=== PATIENT | male | born 1990 | race Two or more races ===

== ENCOUNTER → 2021-08-03 | Outpatient (CLI) | payer BC ==
[2021-08-03 15:56] VITALS: BP 142/89; PULSE 84; TEMP 98.3; BMI 51.5
--- NOTE | 2021-08-03 16:40 | P.HPBAR ---
Bariatric H&P - History & Physicial H&P Date: 08/03/21 History & Physicial: Visit/CC: initial clinic visit Patient initial contact: Initial weight: Initial weight in pounds: Height: 6 ft 1 in Initial BMI: Last weight: Current weight: 177.355 kg Current weight in pounds: 391.00 Current BMI: 51.5 [place] body weight (based on NIH guidelines): 83.461 kg Excess body weight loss: The patient is a 31 year-old M who presents for Bariatric Assessment. Patient presents to the bariatric clinic today to discuss sleeve gastrectomy. Patient has investigated both sleeve gastrectomy and gastric bypass and feels the sleeve as a better fit for him. 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 Patient suffers from asthma chronic back pain and left foot pain. Patient currently uses chewing tobacco but is a nonsmoker. Patient's current weight 390. Says he finished high school at 330. Patient takes levothyroxine and albuterol. He has not discussed this surgery with his primary care physician yet. No history of DVT or dysphagia. Review of Systems The patient denies any acute changes in vision or hearing, no dysphagia or odynophagia, no chest pain or shortness of breath, no dysuria or hematuria, no headache, no runny nose, no rectal bleeding or melena, no unexplained weight loss Past Medical History Past Medical History: Asthma, Osteoarthritis (OA) Additional Past Medical History / Comment(s): bilateral heel spurs History of Any Multi-Drug Resistant Organisms: None Reported Past Surgical History: No Surgical Hx Reported Past Anesthesia/Blood Transfusion Reactions: No Reported Reaction Past Psychological History: No Psychological Hx Reported Smoking Status: Current every day smoker Past Alcohol Use History: Occasional Additional Past Alcohol Use History / Comment(s): chews tobacco daily Surgical - Exam Vital Signs Temp Pulse BP 98.3 F 84 142/89 08/03/21 15:33 08/03/21 15:33 08/03/21 15:33 Physical exam: General: Well-developed, well-nourished HEENT: Normocephalic, sclerae nonicteric Abdomen: Nontender, nondistended Extremities: No edema Neuro: Alert and oriented Bariatric Assessment & Plan (1) Morbid obesity with BMI of 50.0-59.9, adult Narrative/Plan: 31-year-old male with morbid obesity and associated comorbidities. We discussed at length surgical and nonsurgical options for weight loss. We discussed the risks and benefits of sleeve gastrectomy and gastric bypass. Patient remains interested in sleeve gastrectomy at this time. He will discuss this further with his primary care physician. We'll plan preoperative EGD. We'll obtain records from his psychiatrist's and his medical physician. Patient understands that nicotine cessation is required preoperatively and he will work on that. All questions answered. Status: Acute Bariatric Checklist Checklist: Plan: Checklist: EGD: 1. Hiatal hernia: 2. H. Pylori: HgbA1c: Vitamin D: Smoking: Primary care physician referral: dr frost Psychiatry clearance: Cardiology clearance: Sleep study: Diet journal: VTE risk score: VTE risk level: Rehab needs at discharge:
[2021-08-03 22:34] LABS: HCT 46.5 % (39.6-50.0); HGB 15.2 g/dL (13.0-17.0); MCH 29.9 pg (27.0-32.0); MCHC 32.7 g/dL (32.0-37.0); MCV 91.4 fL (80.0-97.0); Mean Platelet Volume 9.8 fL (9.5-12.2); NRBC Per 100 WBC 0 /100 WBCS (0.0-0.0); Platelet Count 312 X 10*3/uL (140-440); RBC 5.09 X 10*6/uL (4.40-5.60); RDW 12.7 % (11.5-14.5); WBC 8.63 X 10*3/uL (4.50-10.00)
[2021-08-03 23:35] LABS: African American GFR (CKD) 134.9 (60.0-200.0); Albumin 4.2 g/dL (3.8-4.9); Albumin/Globulin Ratio 1.8 (1.60-3.17); Anion Gap 10.6 mmol/L (10.00-18.00); BUN/Creat Ratio 18.93 Ratio (12.00-20.00); Calcium 9.5 mg/dL (8.7-10.3); Carbon Dioxide 24.1 mmol/L (20.0-27.5); Globulin 2.4 g/dL (1.6-3.3); Non-African American GFR(CKD) 116.4 (60.0-200.0); Potassium 4.2 mmol/L (3.5-5.5); Total Bilirubin 0.2 mg/dL (0.30-1.20); Total Protein 6.6 g/dL (6.2-8.2)
== END ==
LOC: BARWHC3 15:17
PROVIDERS: ATTEND Surgery
DX: E66.01 Morbid (severe) obesity due to excess calories (principal); K90.89 Other intestinal malabsorption; E55.9 Vitamin D deficiency, unspecified; Z68.43 Body mass index [BMI] 50.0-59.9, adult; J45.909 Unspecified asthma, uncomplicated; M19.90 Unspecified osteoarthritis, unspecified site; F17.200 Nicotine dependence, unspecified, uncomplicated; Z91.09 Other allergy status, other than to drugs and biological substances
CPT/HCPCS: 80053; 82306; 82607; 82746; 83036; 83540; 84425; 85027; 93005; 99203

== ENCOUNTER 2021-09-07 10:17 | Day surgery (SDC) | payer BC ==
[~2021-09-07 10:17] MED LIST: LACTATED RINGERS 1,000 ML IV SCH; LIDOCAINE 1% (10MG/ML) FOR IV START INTRADERMA PRN
[2021-09-07 10:45] VITALS: TEMP 96.7
[2021-09-07] MEDS ORDERED: LIDOCAINE 1% (10MG/ML) FOR IV START INTRADERMA ONE (10:46)
[2021-09-07] MEDS ORDERED: PROPOFOL 10 MG/ML 20 ML VIAL IV ONE (11:59)
[2021-09-07] MEDS ORDERED: LIDOCAINE 2% INJ 20 MG/ML (2 ML VIAL) ONE (11:59)
--- NOTE | 2021-09-07 12:01 | P.GSHP ---
History of Present Illness H&P Date: 09/07/21 Chief Complaint: GERD, presurgical 31-year-old male here today for upper endoscopy. Patient being evaluated for possible sleeve gastrectomy. Mild reflux symptoms. No dysphagia. Past Medical History Past Medical History: Asthma, Hypertension, Osteoarthritis (OA) Additional Past Medical History / Comment(s): WORK UP FOR BARIATRIC SURGERY. Bilateral heel spurs History of Any Multi-Drug Resistant Organisms: None Reported Past Surgical History: No Surgical Hx Reported Past Anesthesia/Blood Transfusion Reactions: No Reported Reaction Additional Past Anesthesia/Blood Transfusion Reaction / Comment(s): HAS NEVER HAD ANY KIND OF ANESTHESIA. Past Psychological History: Anxiety, Depression Smoking Status: Former smoker Past Alcohol Use History: Occasional Additional Past Alcohol Use History / Comment(s): GAVE UP CHEWING TOBACCO. Past Drug Use History: None Reported Medications and Allergies Home Medications Medication Instructions Recorded Confirmed Type Albuterol Inhaler [Ventolin Hfa 1 puff INHALATION DIRECTED 08/03/21 09/07/21 History Inhaler] Levothyroxine Sodium 25 mcg PO DAILY 08/03/21 09/07/21 History Ergocalciferol [Vitamin D2 (1250 50,000 unit PO WEEKLY 08/10/21 09/07/21 History Mcg = 58130 Iu)] Losartan-Hctz 50-12.5 mg [Hyzaar 1 tab PO QAM 09/02/21 09/07/21 History 50-12.5] Allergies Allergy/AdvReac Type Severity Reaction Status Date / Time grass pollen Allergy Mild Unknown Verified 09/07/21 10:40 cat dander Allergy Swelling Verified 09/07/21 10:39 Surgical - Exam Vital Signs Temp Pulse Resp BP 96.7 F L 84 20 179/81 09/07/21 10:43 09/07/21 10:43 09/07/21 10:43 09/07/21 10:43 Physical exam: General: Well-developed, well-nourished HEENT: Normocephalic, sclerae nonicteric Abdomen: Nontender, nondistended Extremities: No edema Neuro: Alert and oriented Assessment and Plan (1) GERD (gastroesophageal reflux disease) Narrative/Plan: Will proceed with upper endoscopy at this time. Current Visit: Yes Status: Acute Code(s): K21.9 - GASTRO-ESOPHAGEAL REFLUX DISEASE WITHOUT ESOPHAGITIS SNOMED Code(s): 995737858
--- NOTE | 2021-09-07 12:15 | P.PCN ---
Date of Procedure: 09/07/21 Procedure(s) Performed: Preoperative Dx: GERD, presurgical Postoperative Dx: Mild gastritis, mild distal esophagitis Procedure: EGD with Bx Anesthesia: Sedation Endoscopist: Dr. Walker Specimens: Antrum, distal esophagus Endoscopic Procedure: The patient was on the endoscopy table in the left decubitus position. The Olympus gastroscope was inserted into the oropharynx and passed under direct visualization to the region of the third portion of the duodenum. From that point the scope was slowly withdrawn inspecting all surfaces carefully. There were no neoplastic inflammatory or polypoid lesions throughout the duodenum. The pylorus was widely patent. The stomach was carefully inspected. There was mild gastritis present. A biopsy of the antrum took place to rule out H. pylori. Retroflexion revealed a normal hiatus. The esophagus was then carefully examined. There was mild non-circumferential distal esophagitis noted. A few small linear erosions less than 1 cm were seen. The remainder the esophagus appear normal. The patient was then taken to the recovery room in stable condition per anesthesia guidelines. Recommendations: Begin antiacid therapy. Await biopsy results. Follow-up bariatric center.
[2021-09-07 12:27] VITALS: RESP 16
[2021-09-07 12:48] VITALS: BP 136/82; PULSE 68
== END 2021-09-07 13:05 | disposition home or self-care (01) ==
LOC: ORWHC2ENDO 10:17
PROVIDERS: ATTEND Surgery
DX: K29.50 Unspecified chronic gastritis without bleeding (principal); K20.0 Eosinophilic esophagitis; J45.909 Unspecified asthma, uncomplicated; I10 Essential (primary) hypertension; M19.90 Unspecified osteoarthritis, unspecified site; M77.9 Enthesopathy, unspecified; F41.9 Anxiety disorder, unspecified; F32.A Depression, unspecified; Z87.891 Personal history of nicotine dependence; E66.01 Morbid (severe) obesity due to excess calories; Z68.43 Body mass index [BMI] 50.0-59.9, adult; Z79.890 Hormone replacement therapy; Z79.899 Other long term (current) drug therapy; Z91.09 Other allergy status, other than to drugs and biological substances
CPT/HCPCS: 88305; 43239; J2704; J2001

== ENCOUNTER → 2021-09-07 | Outpatient (CLI) | payer BC ==
[2021-09-09 08:38] LABS: Anabasine Urine <2.0 ng/mL (<2.0)
== END | disposition home or self-care (01) ==
LOC: LABWHC1 13:06
PROVIDERS: ATTEND Surgery
DX: Z71.51 Drug abuse counseling and surveillance of drug abuser (principal)
CPT/HCPCS: 80323

== ENCOUNTER → 2021-09-27 | Outpatient (CLI) | payer BC ==
[2021-09-27 11:01] VITALS: BP 131/88; PULSE 69; RESP 12; TEMP 98.2; BMI 52.0
== END ==
LOC: BARWHC3 08:28
PROVIDERS: ATTEND Surgery
DX: E66.01 Morbid (severe) obesity due to excess calories (principal); Z71.3 Dietary counseling and surveillance; Z68.43 Body mass index [BMI] 50.0-59.9, adult; Z91.09 Other allergy status, other than to drugs and biological substances
CPT/HCPCS: 97804; 99211